=== PATIENT | male | born 1965 | race Caucasian/White ===

== ENCOUNTER 2019-02-02 13:11 | Emergency (ER) | payer OTHER ==
[~2019-02-02] VITALS: Ht 170.2 cm; Wt 95.3 kg
[2019-02-02 13:22] VITALS: BP 153/102
[2019-02-02] MEDS ORDERED: CLINDAMYCIN 900 MG/6 ML VIAL ONE (13:56)
[2019-02-02] MEDS ORDERED: CLINDAMYCIN 900 MG/6 ML VIAL IM ONE (14:00)
== END 2019-02-02 14:00 | disposition home or self-care (01) ==
LOC: ER 13:14
DX: R21 Rash and other nonspecific skin eruption (principal); I10 Essential (primary) hypertension; Z88.0 Allergy status to penicillin
CPT/HCPCS: 96372; 99283; J3490